=== PATIENT | female | born 1990 | race Caucasian/White ===

== ENCOUNTER 2019-04-26 02:49 | Inpatient (IN) ==
[2019-04-26] MEDS ORDERED: OXYTOCIN 30 UNITS/500 ML BAG IV PRN ×2 (03:15→15:17)
[2019-04-26 03:31] LABS: Hematocrit (blood only) 39.8 % (37-47); Hemoglobin 13.6 g/dL (12.0-16.0); Mean Corpuscular Volume 91.5 fL (80-100); Mean Platelet Volume 9.7 fL (7.4-10.4); Platelet Count 270 K/uL (130-400); RDW Standard Deviation 46.8 fL (36.4-46.3); Red Blood Count 4.35 M/uL (4.2-5.4)
[2019-04-26 03:34] LABS: Mean Corpuscular Hgb Conc 34.2 g/dL (32-36)
[2019-04-26] MEDS: LACTATED RINGER'S 1,000 ML IV PRN ×3 (03:40→09:31)
[2019-04-26] MEDS ORDERED: BUPIVACAINE 0.25% 30 ML VIAL ONE (03:44)
[2019-04-26] MEDS ORDERED: ePHEDrine sulfate 50 MG/ML AMP ONE (03:45)
[2019-04-26] MEDS ORDERED: fentaNYL citrate 100 MCG/2 ML VIAL ONE (03:45)
[2019-04-26] MEDS ORDERED: fentaNYL 2MCG/ML ROPIV 1.25MG/ML 100 ML BAG EPI ONE (03:45)
--- NOTE | 2019-04-26 03:54 | History & Physical Report ---
Date of Service April 26, 2019 Assessment & Plan (1) Previous delivery affecting , antepartum: Patient has signed consent form T&S has been sent Present on Admission?: Yes (2) Desires (vaginal after ) trial: admission orders have been placed patient requesting epidural analgesia antcipate vaginal Present on Admission?: Yes (3) Normal labor: see above plan Present on Admission?: Yes History of Present Illness Chief Complaint: Patient is a 28 yo EDC[birth year] who presents at 39+ weeks with regular contractions every 5 minutes. no SROM. (+) bloody show. GBS (-) complicated by prior section & she is requesting trial of labor. Primary Care Provider: NO PCP Allergies Allergy/AdvReac Type Severity Reaction Status Date / Time No Known Allergies Allergy Verified 04/25/19 10:37 Home Medications Home Medications Medication Instructions Recorded Confirmed Type 1 tab PO DAILY 04/16/19 04/26/19 History vitamin,calcium,awxkklxq-ratt-kllci acid tablet docusate sodium 100 mg capsule 100 mg PO DAILY 04/18/19 04/26/19 History ranitidine HCl [Zantac] 150 mg PO DAILY 04/25/19 04/26/19 History Patient History Medical History ASCUS with positive high risk HPV 03/19/14 History of chicken pox Mild cervical dysplasia, histologically confirmed Surgical History History of section 2015 [facility] History of colposcopy with cervical biopsy S/P wisdom tooth extraction Family History Mother Breast cancer Social History Preferred Language: Latvian Communication Ability: Effective 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 Beliefs That Will Affect Care: None marital status: Single Current Living Situation: Significant Other Current Living Situation Comment: trailer with FOB Other Information That Helps Us Care for You: No Feels Safe at Home: Yes Safety Concerns: Feels Safe At This Time Smoking Status: Never smoker Hx Alcohol Use: No Hx Substance Use: No Review of Systems All systems reviewed & are unremarkable except as noted in HPI & below Physical Exam Constitutional: WD/WN, vitals as above Respiratory: normal respiratory effort, lungs clear to auscultation Cardiovascular: RRR, no murmur, no edema Genitourinary: OB Exam Abdomen: + vertex and + regular contractions Manual OB Exam: + cervical dilation 3 cm, + cervical effacement 100% and + station -1 OB Exam Monitor Tracing: + external FHT monitor used, + external uterine monitor used, + category I and + normal FHT variability Results & Data Vital Signs (Past 12 Hours) Vital Signs Temp Pulse Resp BP 04/26/19 03:00 98.8 F 85 20 142/81 H 04/26/19 02:56 98.8 F 83 20 142/81 H
[2019-04-26] MEDS ORDERED: NALBUPHINE HCL INJ 10 MG/ML AMP IV PRN (04:41)
[2019-04-26] MEDS ORDERED: fentaNYL 2MCG/ML ROPIV 1.25MG/ML 100 ML BAG EPI PRN (04:41)
[2019-04-26] MEDS ORDERED: DiphenhydrAMINE HCL 50 MG/ML VIAL IV PRN (04:41)
[2019-04-26] MEDS ORDERED: ePHEDrine sulfate 50 MG/ML AMP IV PRN (04:41)
[2019-04-26] MEDS ORDERED: NALOXONE HCL 0.4 MG/1 ML VIAL/CARP IV PRN (04:41)
[2019-04-26] MEDS ORDERED: NALOXONE HCL 1 MG in SODIUM CHLORIDE 0.9% 1000ML 1,000 ML IV PRN (04:41)
--- NOTE | 2019-04-26 04:44 | Anesthesiology Consultation ---
Date of Service April 26, 2019 Assessment & Plan Chart Review Chart Review: Acceptable Risk for Labor Epidural Consults Requested none History Height/Weight Height: 5 ft 5 in Weight: 97.522 kg Allergies Allergy/AdvReac Type Severity Reaction Status Date / Time No Known Allergies Allergy Verified 04/25/19 10:37 Medications Home Medications Medication Instructions Recorded Confirmed Last Taken 1 tab PO DAILY 04/16/19 04/26/19 04/22/19 20:00 vitamin,calcium,krjqcbeo-fqpx-wltom acid tablet docusate sodium 100 mg capsule 100 mg PO DAILY 04/18/19 04/26/19 04/22/19 20:00 ranitidine HCl [Zantac] 150 mg PO DAILY 04/25/19 04/26/19 04/24/19 21:00 Active Medications Generic Name Dose Route Start Last Admin Trade Name Freq PRN Reason Stop Dose Admin Lactated Ringer's 1,000 mls @ 125 mls/hr 04/26/19 03:15 04/26/19 04:32 Lr IV 04/28/19 03:14 125 mls/hr .Q8H PRN Infusion L&D Protocol Protocol Past Medical History Medical History ASCUS with positive high risk HPV 03/19/14 History of chicken pox Mild cervical dysplasia, histologically confirmed Past Family History Family History Mother Breast cancer Past Surgical History Surgical History History of section 2015 [facility] History of colposcopy with cervical biopsy S/P wisdom tooth extraction Social History Smoking Status: Never smoker Hx Alcohol Use: No Hx Substance Use: No Physical Exam Vital Signs Last Vital Signs Temp 37.1 C 04/26/19 03:00 Pulse 75 04/26/19 04:42 Resp 20 04/26/19 03:00 BP 104/53 L 04/26/19 04:42 Pulse Ox 97 04/26/19 04:40 Testing Laboratory Results 04/26/19 03:21 Blood Type A Positive 04/26/19 03:21 Antibody Screen NEGATIVE 04/26/19 03:21
--- NOTE | 2019-04-26 08:29 | Labor Progress Brief Note ---
Date of Service April 26, 2019 Subjective comfortable but feeling some contractions Assessment & Plan (1) Desires (vaginal after ) trial: labor down and then will push. fetus category one. (2) Normal labor: Physical Exam Constitutional: WD/WN, vitals as above Gastrointestinal (Abdomen): soft, gravid Genitourinary: cx--c/c/+1 toco--q2min efm--130s with mod variability, accels to 150s Results & Data Vital Signs (Past 12 Hours) Vital Signs Temp Pulse Resp BP Pulse Ox 04/26/19 08:26 120 H 117/70 04/26/19 08:25 121 H 95 04/26/19 08:20 110 H 96 04/26/19 08:15 109 H 95 04/26/19 08:10 103 H 114/61 95 04/26/19 08:08 106 H 89 L 04/26/19 08:05 119 H 93 04/26/19 08:00 107 H 96 04/26/19 07:56 111 H 106/55 L 04/26/19 07:55 112 H 98 04/26/19 07:50 108 H 95 04/26/19 07:45 107 H 97 04/26/19 07:40 104 H 106/59 L 96 04/26/19 07:35 110 H 94 04/26/19 07:30 103 H 96 04/26/19 07:27 36.9 C 104 H 20 104/59 L 04/26/19 07:25 103 H 93 04/26/19 07:20 92 H 95 04/26/19 07:15 101 H 96 04/26/19 07:10 103 H 115/61 94 04/26/19 07:05 88 94 04/26/19 07:00 85 93 04/26/19 06:55 101 H 114/62 94 04/26/19 06:54 88 89 L 04/26/19 06:50 89 90 04/26/19 06:49 83 89 L 04/26/19 06:45 83 93 04/26/19 06:42 81 112/61 04/26/19 06:40 102 H 91 04/26/19 06:35 95 H 92 04/26/19 06:30 112 H 96 04/26/19 06:26 93 H 112/64 04/26/19 06:25 92 H 92 04/26/19 06:24 91 H 89 L 04/26/19 06:20 88 93 04/26/19 06:18 81 90 04/26/19 06:15 89 92 04/26/19 06:10 106 H 95 04/26/19 06:07 96 H 110/61 04/26/19 06:05 115 H 94 04/26/19 06:02 113 H 121/73 04/26/19 06:00 114 H 95 04/26/19 05:57 107 H 120/65 04/26/19 05:55 101 H 93 04/26/19 05:52 111 H 117/67 04/26/19 05:50 89 95 04/26/19 05:47 115 H 113/66 04/26/19 05:45 106 H 94 04/26/19 05:42 116 H 104/56 L 04/26/19 05:40 90 95 04/26/19 05:38 93 H 120/61 04/26/19 05:35 88 94 04/26/19 05:32 88 111/59 L 04/26/19 05:30 104 H 95 04/26/19 05:27 94 H 115/61 04/26/19 05:25 100 H 96 04/26/19 05:23 106 H 89/53 L 04/26/19 05:20 83 94 04/26/19 05:17 79 104/60 04/26/19 05:15 84 94 04/26/19 05:13 104 H 115/59 L 04/26/19 05:10 82 95 04/26/19 05:07 96 H 108/55 L 04/26/19 05:05 86 98 04/26/19 05:03 87 117/58 L 04/26/19 05:00 94 H 98 04/26/19 04:56 106 H 105/57 L 04/26/19 04:55 85 95 04/26/19 04:54 85 106/58 L 04/26/19 04:52 100 H 103/54 L 04/26/19 04:50 89 100/52 L 97 04/26/19 04:48 86 105/58 L 04/26/19 04:46 96 H 106/55 L 04/26/19 04:45 97 H 97 04/26/19 04:44 94 H 106/54 L 04/26/19 04:42 75 104/53 L 04/26/19 04:40 94 H 104/58 L 97 04/26/19 04:39 90 101/50 L 04/26/19 04:35 93 H 97 04/26/19 04:34 93 H 104/51 L 04/26/19 04:32 90 106/50 L 04/26/19 04:31 86 115/56 L 04/26/19 04:30 85 95 04/26/19 04:29 85 137/59 L 04/26/19 04:28 76 94 04/26/19 04:26 79 126/74 04/26/19 04:25 78 96 04/26/19 04:23 98 H 122/76 04/26/19 04:22 94 H 89 L 04/26/19 04:20 80 89 L 04/26/19 04:16 104 H 114/69 04/26/19 04:15 100 H 94 04/26/19 03:00 37.1 C 85 20 142/81 H 04/26/19 02:56 37.1 C 83 20 142/81 H
[2019-04-26] MEDS ORDERED: ACETAMINOPHEN 325 MG TAB PO PRN (10:20)
[2019-04-26] MEDS ORDERED: IBUPROFEN 600 MG TAB PO PRN (10:20)
[2019-04-26] MEDS ORDERED: OXYCODONE/ACETAMINOPHEN 5mg/325mg TAB PO PRN (10:20)
--- NOTE | 2019-04-26 12:16 | Anesthesia Procedure Note ---
Date of Service April 26, 2019 Anesthesia Post Epidural Note Vital Signs Vital Signs: Temp Pulse Resp BP Pulse Ox 36.8 C 110 H 20 117/65 98 04/26/19 09:10 04/26/19 11:40 04/26/19 09:25 04/26/19 11:40 04/26/19 08:55 Pain Intensity Perineal: Pain Intensity: 2 Notes Mental Status: alert / awake / arousable and participated in evaluation Patient Amnestic to Procedure: No Nausea / Vomiting: adequately controlled Pain: adequately controlled Airway Patency, RR, SpO2: stable & adequate BP & HR: stable & adequate Hydration State: stable & adequate Neuraxial Anesthesia: was administered and sensory block is resolving Anesthetic Complications: no major complications apparent and Pt Satisfied with anesthetic care Epidural: Removed without complications and With tip intact
--- NOTE | 2019-04-26 13:21 | Delivery Summary ---
Vaginal Delivery Summary Date of Service April 26, 2019 Vaginal Delivery Summary Pre-operative Diagnosis: at term, hx of , desires Post-operative Diagnosis: same Procedure: epidural, , repair of second degree laceration EBL: 400 Aesthesia: epidural Procedure: The patient pushed for about 10 minutes to deliver a viable male in josh position. The nose and mouth were bulb suctioned on the perineum and the rest of the baby was delivered without difficulty. The nose and mouth were bulb suctioned and the was placed in the maternal abdomen for drying and attention. Cord was clamped and cut at about 30 secs of life. Cord blood and segment obtained. Placenta delivered s/i/3vc. Cervix/sulci/rectum intact. A second degree perineal laceration was repaired in the normal standard fashion. Hemostasis obtained with dilute pitocin and fundal massage. Apgars were 5/9. Mother and baby doing well at the end of the delivery.
[2019-04-26] MEDS ORDERED: HYDROCORTISONE ACETATE 25 MG SUPP PR PRN (15:17)
[2019-04-26] MEDS ORDERED: BISACODYL 10 MG SUPP PR PRN (15:17)
[2019-04-26] MEDS ORDERED: SUPERCREAM 0.870% 15 GM JAR EXT PRN (15:17)
[2019-04-26] MEDS ORDERED: DIPHTHERIA/TETANUS/PERTUSSIS 0.5 ML SYR/VIAL IM ONE (15:17)
[2019-04-26] MEDS ORDERED: BENZOCAINE 20% AER SPR 82.5 GM CAN EXT PRN (15:17)
[2019-04-26] MEDS: DOCUSATE SODIUM 100 MG CAP PO SCH (20:25)
[2019-04-27 07:13] LABS: Hematocrit (blood only) 33.6 % (37-47); Hemoglobin 11.4 g/dL (12.0-16.0)
--- NOTE | 2019-04-27 07:52 | Obstetrical Progress Note ---
Date of Service April 27, 2019 Assessment & Plan (1) , delivered: Doing well. Routine care. Day #:: 1 Subjective Ambulation: ambulating normally Voiding: no voiding problems Passing Gas:: Yes Lochia:: Small Feeding Type:: breast feeding Physical Exam Constitutional WD/WN, vitals as above Cardiovascular Extremities: no calf tenderness and no edema Gastrointestinal (Abdomen) Inspection/Auscultation: abdomen not distended Percussion/Palpation: abdomen soft; abdomen nontender ff/nt at u Psychiatric A+Ox3, euthymic affect Results & Data Vital Signs (Past 12 Hours) Vital Signs Temp Pulse Resp BP Pulse Ox 04/27/19 03:45 37.2 C 91 H 18 101/52 L 98 04/26/19 23:40 37.3 C 93 H 20 111/70 04/26/19 23:10 37.3 C 86 18 117/69 97 04/26/19 20:00 37.4 C 97 H 18 122/72
[2019-04-27] MEDS ORDERED: PRENATAL VITAMIN 1 TAB PO SCH (08:00)
[2019-04-27] MEDS: DOCUSATE SODIUM 100 MG CAP PO SCH (08:54)
[2019-04-27] MEDS ORDERED: MEASLES, MUMPS & RUBELLA VIRUS VIAL SQ ONE (11:30)
[2019-04-27 16:28] VITALS: BP 109/73; PULSE 92; TEMP 98.8; O2SAT 96
[2019-04-27] MEDS ORDERED: BISACODYL 5 MG TABEC PO SCH (20:00)
== END 2019-04-27 17:15 | disposition home or self-care (01) | DRG 807 ==
LOC: OPB 02:49 → 4S1 02:50 → 4S2 13:05